=== PATIENT | female | born 1995 | race Caucasian/White ===

== ENCOUNTER 2016-06-11 11:12 | Emergency (ER) | payer OTHER | END 2016-06-11 11:47 | disposition home or self-care (01) | LOC: NAV ERS 11:12 | DX: L25.9 Unspecified contact dermatitis, unspecified cause (principal); N39.0 Urinary tract infection, site not specified; F32.9 Major depressive disorder, single episode, unspecified; F41.9 Anxiety disorder, unspecified | CPT/HCPCS: 99282 ==